=== PATIENT | female | born 1985 | race Caucasian/White ===

== ENCOUNTER 2021-06-23 03:32 | Day surgery (SDC) | payer OTHER, SELFPAY ==
[2021-06-15 14:23] VITALS: BMI 44.1
--- NOTE | 2021-06-15 14:33 | PC.NURSE ---
Report to the Outpatient Waiting Room, entrance under the green pavilion located off [facility], at time 0730 on date 06/23/21. OR Time: 0930. - You and your visitor will be asked a series of questions to screen for COVID 19 for your protection. - A mask is required within the hospital. - Only one visitor is allowed at this time. Patient visitors will be guided where to wait when not with patient. Preoperative COVID Testing Requirements: No COVID Test needed if: (proof is required; if not received patient will have Rapid Test prior to entry) - Patient has received COVID Vaccine at least 14 days prior to procedure date or - Patient has positive COVID test result within last 90 days of surgery date. COVID Test needed if above criteria is not met If not COVID vaccinated a COVID test must be conducted within 72 hours of surgery and patient is asked to isolate self from time of testing until procedure. You will go to the [facility] for your COVID testing. The [facility] site is located at the corner of [address] [facility]. You will only be called if COVID results are positive and your surgeon may reschedule your elective surgery date. Patients may have clear liquids (water, carbonated beverages, clear teas, apple juice) until 3 hours prior to surgery with a maximum of 20 ounces. - No food from midnight until time of surgery - Infants may have breast milk until 4 hours before surgery, infant formula 6 hours prior to surgery. - Children will be allowed to drink immediately following surgery. If applicable, please bring a bottle or sippy cup to assist with drinking. Juice, water, soda, and popsicles are readily available. For infants on formula, please bring formula the day of surgery. Pacifiers are allowed. Take the following medications with a SIP of water the morning of surgery: CLONAZEPAM, DIVALPROEX, ESCITALOPRAM Medications to discontinue per physician: N/A Date to take last dose: N/A Please no make-up, nail thai, hairspray, perfume, deodorant, or body powder the day of surgery. No jewelry (including any body piercings) or valuables the day of surgery, leave them at home. Please take a shower or bath the night before, or the morning of, surgery with an antibacterial soap. Wear comfortable, loose fitting clothing. Children are encouraged to wear pajamas. - Jewelry must be removed prior to entering the operating room. Rings and piercings that are not removed may be cut off. - The hospital will not accept responsibility for valuables. - Please leave all valuables, including medications, at home the day of surgery. If you are going home after surgery, a licensed ready mix truck driver must drive you home. - NO public transportation without another adult. - We recommend that an adult stay with you for 24 hours following discharge. - We also recommend that you do not drive, make important decision, drink alcoholic beverages, or take any drugs that were not prescribed by your health care provider for at least 24 hours after your discharge time. For Pediatric surgeries, we recommend two adults accompany the child home (only one inside the building at this time). Follow any additional instructions given to you from your surgeon. Telephone instructions given to MADI AGGARWAL and asked if any additional questions and then verbalized understanding. Patient advised to call surgeon office or pre surgery nurse liaison [phone] if any additional questions.
--- NOTE | 2021-06-22 12:18 | P.PNAN_ITS ---
Anes - Initial Pre Proc Eval Procedure: Operation Date: 06/23/21 09:30 Proposed Procedures p Partial Plantar Fasciectomy Left Foot with Tarsal Tunnel Release Left Foot - Malcom Childers JR, MD Date/Time: 06/22/21 12:18 Surgeon: Malcom Childers JR, MD Pre Op Diagnosis: plantar fasciitis left foot, tarsal tunnel syndrom Patient Data Age: 35 Gender: F Height: 1.65 m Weight: 120.2 kg Allergies Allergy/AdvReac Type Severity Reaction Status Date / Time shrimp Allergy Severe Hives Verified 06/23/21 07:53 iodine Allergy Unknown Hives Verified 06/23/21 07:53 Home Medications Medication Instructions Recorded Confirmed Type clonazepam 0.5 mg tablet 0.5 mg PO DAILY 11/05/19 06/23/21 History escitalopram oxalate 20 mg tablet 20 mg PO DAILY 11/05/19 06/23/21 History trazodone 50 mg tablet 50 mg PO HS 11/05/19 06/23/21 History divalproex 250 mg tablet,extended 500 mg PO BID tablet 04/04/20 06/23/21 History release 24 hr Patient hx anesthesia problems: none Family hx anesthesia problems: none Results Review: All pre-operative results and documents have been reviewed as part of the pre-operative evaluation. [facility] Past Medical History Medical History Allergic rhinitis Depression Surgical History Surgical History delivery delivered Cholecystectomy planned Family History Family History Mother Family history of mental disorder Depression Sibling Family history of attention deficit hyperactivity disorder (ADHD) Social History Social History (Reviewed 04/24/21 @ 15:22 by Shasta Marcus [facility]) Years smoked: 11 Smoking status: Former smoker Second hand tobacco smoke exposure: Yes Smoking end date: 07/08/10 Alcohol intake: never Substance use: never Substance use type: does not use Living arrangements: with family Gender identity (if verbalized by the patient): Female Spiritual care concerns: No Agree to blood products: Yes Anes - Eval Final PreProcedure Day of Procedure 06/22/21 12:18 Patient weight: morbidly obese Heart: regular rate and rhythm Lungs: clear to auscultation and normal air movement Airway: Mallampati scale class 1 Neurological: alert and oriented Last oral intake: >/= 8 hours ASA classification: III Emergent: no Anesthetic plan: proceed Anesthesia type and monitoring: general LMA and standard monitoring Results Review: All pre-operative results and documents have been reviewed as part of the pre-operative evaluation. Informed Consent: The patient's anesthetic plan and its attendant risks and benefits were discussed with the patient/family/POA. Questions were solicited and answers provided to the satisfaction of the patient/family/POA.
[2021-06-23] VITALS (16 sets, daily range): BP systolic 115–154; BP diastolic 69–97; PULSE 62–118; RESP 10–18; TEMP 35.8–36.9; O2SAT 92–100
--- NOTE | 2021-06-23 07:22 | WPDHPUPDATE1 ---
History and Physical Update Update Date/Time: 06/23/21 07:22 History and Physical has been reviewed, including an updated exam of the patient. There are NO changes in the patient's condition. Risks, benefits, and alternatives have been discussed and questions answered. Patient agrees to proceed with procedure.
[2021-06-23] MEDS: LACTATED RINGERS 1,000 ML 30 ML IV CONT ×2 (08:02→10:48)
[2021-06-23] MEDS: ceFAZolin 3 GM/D5W 100 ML 100 ML IVPB (09:26)
[2021-06-23] MEDS: BUPIVACAINE HCL 0.5% PF 30 ML VIAL INFILTRATE (09:47)
[2021-06-23] MEDS: LIDOCAINE HCL 2% PF INJ 5 ML VIAL 10 ML INFILTRATE (09:48)
--- NOTE | 2021-06-23 10:54 | W.PM.PROC2 ---
Procedure Note - Detailed Date of Procedure 06/23/21 Pre-op Diagnosis 1.Plantar fasciitis left foot 2.Tarsal tunnel syndrome left foot Post-op Diagnosis same Procedure Performed 1. Partial plantar fasciectomy left foot 2. Tarsal tunnel release left foot Surgeon Malcom Childers JR, COBYM Anesthesia general and local Description of Procedure Under mild sedation, the patient was brought in to the operating room, placed on the operating table in the supine position. A pneumatic thigh tourniquet was placed about the patient's left thigh. Following general anesthesia, local anesthesia was obtained about the left lower extremity utilizing 20 mL of 0.5 Marcaine plain and 2% Lidocaine plain to the proximal common peroneal nerve and proximal tibial nerve. The foot was then scrubbed, prepped, and draped in the usual aseptic manner. An Esmarch bandage was then used to exsanguinate the patient's left foot and distal leg and the pneumatic thigh tourniquet was then inflated to 350mmHg. Next, an incision was made starting distal to the medial tubercle of the calcaneus extending distally 3cm. All bleeders were cauterized as necessary. Next the dissection was continued down to the plantar fascia it was exposed medially and laterally with [employer] [place] retractors. The proximal plantar fascia was noted to be thick and very narrow at its origin at the medial tubercle of the calcaneus. The medial two thirds of the plantar fascia was transected and a 4mm portion was excised and passed from the operative site and sent for gross and histopathology. The wound site was flushed with sterile saline. The deep subcutaneous tissue was reapproximated with 2.0 Vicryl and the skin was reapproximated with 2.0 Prolene and 3.0 Prolene in Vertical mattress and simple interrupted suture technique. Attention was then directed to the medial aspect of the left foot and ankle. A 10cm curvilinear incision was made starting 5cm cephalad to the medial malleolus extending distally to the medial instep. All bleeders were ligated and cauterized as necessary. Utilizing blunt dissection the flexor retinaculum was identified and very carefully transected in small 1cm increments making sure to watch the deep neurovascular bundle. After complete release of the tarsal tunnel including the abductor canal as well as the calcaneal branches of the tibial nerve, the tibial nerve was bluntly dissected with a curved mosquito. The tibial nerve was discolored with adipose like changes and thickness to the nerve. These intraoperative findings coincide with the patients tarsal tunnel paresthesias. Next the subcutaneous layer was reapproximated with 3.0 Vicryl and the skin was reapproximated with 4.0 Monocryl in running subcuticular suture fashion technique. Upon completion of the procedure, the medial incision was dressed with Steri-strips, Adaptic, 4x4s, Kerlix, and Coban, the plantar incision was dressed with adaptic, 4.4 gauze, Kerlix and Coban. The pneumatic thigh tourniquet was then deflated and a prompt hyperemic response was noted to all digits of the left foot. A below knee cast was then applied to the left lower extremity with the foot 90 degrees to the leg. The patient did very well with the procedure and the anesthesia. The patients was transferred to the recovery room with vital signs stable and vascular status intact to all toes of the affected foot. Following a period of postoperative monitoring, the patient will be discharged home on the following written and oral postoperative instructions: 1. The patient should keep the dressing clean, dry, and intact. Use a cast protector bag with showers. 2. The patient will be strictly protected weight bearing with a surgical shoe. 3. Patient should ice and elevate the right foot when at rest. 4. The patient is to contact Dr. Childers for all postop care and if any problems arise. 5. Prescriptions were written for Percocet 5/325 dispensed 40 to be taken 1 p.o. q.4-6
[2021-06-23] MEDS: fentaNYL CITRATE INJ (*CRX) 100 MCG/2 ML VIAL 25 MCG IV PUSH ×4 (11:03→11:20)
--- NOTE | 2021-06-23 11:19 | SUR.PHASEI ---
1119 Simple mask removed.
[2021-06-23] MEDS: HYDROmorphone HCL INJ (*CRX) 1 MG/ML SYR 0.5 MG IV PUSH ×2 (11:28→13:13)
--- NOTE | 2021-06-23 11:37 | ECG_ITS ---
Measurements Intervals [place] Rate: 85 P: 52 KS: 135 QRS: 29 QRSD: 90 T: 53 QT: 355 QTc: 424 Interpretive Statements SINUS RHYTHM NORMAL ECG Electronically Signed On 06-23-2021 12:22:00 SPONSORSHIP COORDINATOR by Geovany Watkins D.O.
[2021-06-23] MEDS: MIDAZOLAM HCL (*CRX) 2 MG/2 ML VIAL IV PUSH (11:40)
[2021-06-23] MEDS: METOPROLOL TARTRATE INJ 5 MG/5 ML VIAL IV PUSH (12:09)
[2021-06-23 12:45] LABS: Troponin I < 0.012 ng/mL (0.000-0.034)
--- NOTE | 2021-06-23 12:51 | SUR.PHASEI ---
Around 1135 patient complained of midsternal chest pain. RN contacted Dr. Haji and got an order 2mg Versed and a stat EKG. Ekg showed some changes. Patient couldn't maintain O2 sats above 90% after the versed so RN applied 2L NC. Then patient kept dropping her sats so RN turned O2 up to 4L NC. Dr. Haji was with another patient so Dr. Pabon came to the PACU to evaluate the situation. Dr. Pabon said to hold off on a cardiology consult and just get one stat trop for now. He also ordered 5MG Metoproplol IV push. He also suggested putting patient back on simple mask at this time. 6L simple mask was applied. RN is just waiting on trop to result. was updated during this situation as well by ROLL CHANGER.
--- NOTE | 2021-06-23 13:17 | SUR.PHASEI ---
Trop was negative and may proceed with going home per anesthesia
[2021-06-23] MEDS: ONDANSETRON INJ 4 MG/2 ML VIAL IV PUSH (13:19)
[2021-06-23] MEDS: oxyCODONE HCL (*CRX) 5 MG TAB IR PO (14:47)
== END 2021-06-23 15:45 | disposition home or self-care (01) ==
PROVIDERS: Anesthesiology; PCP Family Medicine; Visit Provider Podiatrist Foot & Ankle Surgery
PROC: (CPT 28035; principal; 2021-06-23 09:30)
DX: M72.2 Plantar fascial fibromatosis (principal); G57.52 Tarsal tunnel syndrome, left lower limb; F32.9 Major depressive disorder, single episode, unspecified; Z87.891 Personal history of nicotine dependence; E66.01 Morbid (severe) obesity due to excess calories; Z68.42 Body mass index [BMI] 45.0-49.9, adult
CPT/HCPCS: 28060; 28035; 36415; 84484; 88304; 93005; A9270; J0690; J1100; J1170; J2250; J2405; J2704; J3010; J7120

== ENCOUNTER 2021-07-26 12:34 | Outpatient (CLI) | payer BC, SELFPAY ==
--- NOTE | ~2021-07-26 | XR_ITS ---
EXAMINATION: XR lumbar spine 2-3V DATE: 07/26/2021 13:22 INDICATION: Dorsalgia. TECHNIQUE: 3 views of lumbar spine were obtained. COMPARISON: None. FINDINGS: There is 5 degrees levocurvature of thoracolumbar spine. Vertebral body heights and interve rtebral disc heights are normal. At L5-S1, there is moderate facet joint osteoarthritis. Surgical cli ps in the right upper quadrant are likely from cholecystectomy. IMPRESSION: 1. Moderate facet joint osteoarthritis at L5-S1. Reviewed, dictated and finalized at location A. IFIED DIABETES EDUCATOR
--- NOTE | ~2021-07-26 | XR_ITS ---
EXAMINATION: XR thoracic spine 2V DATE: 07/26/2021 13:22 INDICATION: Dorsalgia. TECHNIQUE: 3 views of thoracic spine on 4 radiographs were obtained. COMPARISON: None. FINDINGS: Bone alignment is normal. Vertebral body heights and intervertebral disc heights are normal . There are endplate osteophytes at most levels. Surgical clips in the right upper quadrant are likel y from cholecystectomy. IMPRESSION: 1. Mild thoracic spondylosis. Reviewed, dictated and finalized at location A. MAN
== END 2021-07-26 12:35 | disposition home or self-care (01) ==
PROVIDERS: PCP Family Medicine; Visit Provider Family Medicine
DX: M54.9 Dorsalgia, unspecified (principal); M47.814 Spondylosis without myelopathy or radiculopathy, thoracic region; M47.816 Spondylosis without myelopathy or radiculopathy, lumbar region
CPT/HCPCS: 72070; 72100

== ENCOUNTER 2022-09-14 12:34 | Outpatient (CLI) | payer BC, SELFPAY ==
--- NOTE | ~2022-09-14 | MR_ITS ---
MRI of the lumbar spine Clinical History: Right sciatica Technique: Axial T2-weighted images, and sagittal T1-weighted, T2-weighted, and T2 fat-sat images wer e acquired. Findings: There is no fracture or subluxation of the lumbar spine. Vertebral bodies maintain normal h eight and alignment. No bone marrow signal abnormality identified. At L1-L2, L2-L3, L3-L4, there is facet arthropathy. No disc bulge or herniation at these levels. No s mami canal stenosis or neural foraminal narrowing at these levels. At L4-L5, there is minimal disc desiccation with minimal disc bulge and tiny annular fissure. Facet a rthropathy present. No jeanette spinal canal stenosis or neural foraminal narrowing. At L5-S1, there is no disc bulge or herniation. There is facet arthropathy. No spinal canal stenosis or neural foraminal narrowing. Paravertebral soft tissues are unremarkable. Impression: Minimal degenerative spondylitic changes, as detailed above. Reviewed, dictated and finalized at [facility]. CIPAL STATISTICAL SCIENTIST Impression: Minimal degenerative spondylitic changes, as detailed above.
== END 2022-09-14 12:35 ==
LOC: MICIMG 12:36
PROVIDERS: PCP Physician Assistant Medical; Visit Provider Physician Assistant Medical
DX: M54.16 Radiculopathy, lumbar region (principal)
CPT/HCPCS: 72148